=== PATIENT | male | born 1990 | race African-American/Black ===

== ENCOUNTER 2021-02-06 06:24 | Emergency (ER) | payer SELFPAY ==
[~2021-02-06] VITALS: Ht 182.9 cm; Wt 105.0 kg
[2021-02-06 06:46] VITALS: BP 140/88
[2021-02-06] MEDS ORDERED: CEPH500C2 PO (06:54)
[2021-02-06] MEDS ORDERED: SULF1TAB48 PO (06:54)
== END 2021-02-06 07:12 | disposition home or self-care (01) ==
LOC: ER 06:24
DX: L03.116 Cellulitis of left lower limb (principal)
CPT/HCPCS: 99283